=== PATIENT | female | born 1980 | race Caucasian/White ===

== ENCOUNTER 2019-03-20 05:30 | Day surgery (SDC) | payer OTHER, MEDICAID ==
[2019-03-20] MEDS: BUPIVACAINE 0.5%/EPI (SDV) 30 ML INJ INJ
[2019-03-20] MEDS ORDERED: LACTATED RINGER'S 1,000 ML IV (06:30)
[2019-03-20] MEDS ORDERED: CEFAZOLIN 2 GM/50 ML (PMX) 50 ML IVPB (06:30)
[2019-03-20 06:34] LABS: ADD MAN DIFF? NO
[2019-03-20] MEDS ORDERED: BUPIVACAINE 0.5%/EPI (SDV) 30 ML INJ (06:47)
[2019-03-20 06:57] LABS: BASOPHILS % 0.2 % (0.0-2.0); EOSINOPHILS # 0.1 10^3/ul (0.0-0.5); EOSINOPHILS % 1.2 % (0.0-7.0); HEMATOCRIT 38.5 % (37.0-47.0); HEMOGLOBIN 12.9 g/dl (12.0-16.0); LYMPHOCYTES # 3.5 10^3/ul (0.8-2.9); LYMPHOCYTES % 32.3 % (15.0-51.0); MEAN CORPUSCULAR HEMOGLOBIN 30.7 pg (29.0-33.0); MEAN CORPUSCULAR HGB CONC 33.5 g/dl (32.0-37.0); MEAN CORPUSCULAR VOLUME 91.7 fl (82.0-101.0); MEAN PLATELET VOLUME 9.2 fl (7.4-10.4); MONOCYTE # 0.6 10^3/ul (0.3-0.9); MONOCYTES % 5.7 % (0.0-11.0); NEUTROPHIL # 6.5 10^3/ul (1.6-7.5); NEUTROPHILS % 60.2 % (39.0-77.0); PLATELET COUNT 288 10^3/UL (140-415); RED CELL DISTRIBUTION WIDTH 12.6 % (11.5-14.5)
[2019-03-20 06:57] LABS: WHITE BLOOD COUNT 10.7 10^3/ul (4.8-10.8)
[2019-03-20] MEDS ORDERED: ONDANSETRON 4 MG INJ (07:13)
[2019-03-20] MEDS ORDERED: PROPOFOL 20 ML (07:13)
[2019-03-20] MEDS ORDERED: LIDOCAINE 100 MG SYRINGE (07:13)
[2019-03-20] MEDS ORDERED: CEFAZOLIN 1 GM INJ (07:13)
[2019-03-20] MEDS ORDERED: MIDAZOLAM 1 MG/ML 2 ML INJ (07:13)
[2019-03-20] MEDS ORDERED: DEXAMETHASONE 4 MG/ML 5 ML INJ (07:13)
[2019-03-20] MEDS ORDERED: FENTAnyl 50 MCG/ML VIAL (07:13)
[2019-03-20] MEDS ORDERED: ROCURONIUM 50 MG INJ (07:13)
[2019-03-20] MEDS ORDERED: SUGAMMADEX SODIUM 200 MG/2 ML VIAL IV (07:14)
[2019-03-21] MEDS ORDERED: MIDAZOLAM 1 MG/ML 2 ML INJ (14:17)
[2019-03-21] MEDS ORDERED: morphine SULFATE/PF (10 MG/10 ML) INJ (14:18)
[2019-03-21] MEDS ORDERED: NEOSTIGMINE 3 MG/3 ML SYRINGE (17:38)
[2019-03-21] MEDS ORDERED: PROPOFOL 20 ML (17:38)
[2019-03-21] MEDS ORDERED: ROCURONIUM 50 MG INJ (17:38)
[2019-03-21] MEDS ORDERED: CEFAZOLIN 1 GM INJ (17:38)
[2019-03-21] MEDS ORDERED: GLYCOPYRROLATE 0.4 MG INJ (17:38)
[2019-03-21] MEDS ORDERED: LIDOCAINE 2% (SDV) 5 ML INJ (17:38)
[2019-03-21] MEDS ORDERED: ONDANSETRON 4 MG INJ (17:39)
== END 2019-03-20 19:00 | disposition home or self-care (01) ==
LOC: SDS 05:30
DX: Z30.2 Encounter for sterilization (principal); Z32.01 Encounter for pregnancy test, result positive; Z53.09 Procedure and treatment not carried out because of other contraindication
CPT/HCPCS: 84703; 85025; 93005